=== PATIENT | female | born 1985 | race Caucasian/White ===

== ENCOUNTER 2017-11-20 04:40 | Emergency (ER) | payer BC ==
[~2017-11-20] VITALS: Ht 165.1 cm; Wt 63.5 kg
--- NOTE | 2017-11-20 04:51 | Emergency Room Report ---
History of Present Illness General Source: Patient, EMS Present Illness HPI 32-year-old female brought in by EMS with alleged overdose Per EMS patient had respiratory rate less than 6, was hypoxic, not breathing on her own CPR was in progress when EMS arrived She had pinpoint pupils, responded only after 2nd round of 2mg narcan Patient now more alert, denies heroin, states only ETOH "hanging out with 2 guys." Patient otherwise lethargic, refusing to provide additional HPI at this time Allergies: Coded Allergies: No Known Allergies (Unverified , 11/20/17) Patient History Past Medical History: unable to obtain Past Surgical History: unable to obtain Pertinent Family History: unable to obtain Now: No Immunizations: UTD Reviewed Nursing Documentation: PMH: Agreed, PSxH: Agreed Review of Systems All Other Systems: limited - Patient not cooperative Physical Exam Sp02 EP Interpretation: reviewed, normal General Appearance: normal inspection, well appearing, no apparent distress, alert, GCS 15, non-toxic Head: normocephalic, atraumatic Eyes: bilateral eye PERRL, bilateral eye EOMI ENT: normal ENT inspection, hearing grossly normal, normal pharynx, no angioedema, normal voice, TMs + canals normal, uvula midline, moist mucus membranes Neck: normal inspection, full range of motion, supple, thyroid normal, no meningismus, no bony tend Respiratory: normal inspection, lungs clear, normal breath sounds, no rhonchi, no respiratory distress, no retraction, no accessory muscle use, no wheezing, speaking full sentences Cardiovascular #1: regular rate, rhythm, no edema, no JVD, normal capillary refill Gastrointestinal: normal inspection, normal bowel sounds, non tender, soft, no mass, no peritonitis, non-distended, no guarding, no hernia, no pulsatile mass Genitourinary: no CVA tenderness Musculoskeletal: normal inspection, back normal, normal range of motion, no calf tenderness, pelvis stable, Romulo's Sign negative Neurologic: normal inspection, alert, oriented x3, responsive, corporate quality assurance manager III-XII nml as tested, motor strength/tone normal, cerebellar normal, normal gait, speech normal Psychiatric: normal inspection, judgement/insight normal, mood/affect normal, no suicidal/homicidal ideation, no delusions Skin: normal inspection, normal color, no rash Lymphatic: normal inspection, no adenopathy Procedures Critical Care Time Critical Care Time CC time 35 min Critical care time endorsed for this patient for this alleged overdose on ? heroin. Intent unknown Critical care time includes review of laboratory tests, imaging, review of EMR, review of paperwork from SNF (if available), discussion with patient and family (if available), review of code status/POLS (if available). Critical care time also likely includes assessment of fluid status, stabilization of vital signs, possible Tox consult, additional narcan doses, narcan drip gtt titration Critical care time does not include any procedures which are documented elsewhere in this EMR. Medical Decision Making Diagnostic Impression: Primary Impression: Altered mental status Qualified Codes: R41.82 - Altered mental status, unspecified ER Course ETOH level normal Utox + for benzos, barbituates. Patient's came to the ER, states patient was just discharged from rehabilitation earlier today. Was given barbiturates and benzos there to treat for her addiction. Endorses patient has been in and out of rehabilitation primarily for cocaine abuse He denies that she ever used heroin in the past, also denies to him that she used heroin last night. Urine tox is negative for opiates It's possible that there wasn't a causality relationship between Narcan given by EMS and response by patient Rest of labs unremarkable Patient now awake and oriented, go home with We'll discharge ER course: Patient has remained stable during ED stay. Disposition: Patient is to be discharged to home. Patient is instructed to follow up with their primary care doctor within 5 days. Strict return precautions discussed with patient such as fever, chills, worsening/severe pain, nausea, vomiting, which may indicate severe illness. Patient verbalizes understanding and agrees with plan. Please note that this Emergency Department Report was dictated using [employer] technology software, occasionally this can lead to erroneous entry secondary to interpretation by the dictation equipment Rhythm Strip Diag. Results EP Interpretation: yes Rate: 79 Rhythm: NSR, no PVC's, no ectopy Status: improved Disposition: HOME, SELF-CARE ALISSON FAGAN M.D. Nov 20, 2017 04:51
[2017-11-20 05:45] LABS: EOSINOPHILS % (AUTO) 5.9 % (0.0-3.0); HEMATOCRIT 42.1 % (37.0-47.0); HEMOGLOBIN 13.4 G/DL (12.0-16.0); LYMPHOCYTES % (AUTO) 46.5 % (20.0-45.0); MEAN CORPUSCULAR VOLUME 100 FL (80-99); MONOCYTES % (AUTO) 4.5 % (1.0-10.0); NEUTROPHILS % (AUTO) 41.1 % (45.0-75.0); PLATELET COUNT 321 K/UL (150-450); RED BLOOD COUNT 4.23 M/UL (4.20-5.40); RED CELL DISTRIBUTION WIDTH 12.4 % (11.6-14.8); WHITE BLOOD COUNT 6.3 K/UL (4.8-10.8)
[2017-11-20 05:53] VITALS: BP 99/68
[2017-11-20 05:57] LABS: ANION GAP 7 mmol/L (5-15); BLOOD UREA NITROGEN 9 mg/dL (7-18); CALCIUM 9.1 MG/DL (8.5-10.1); CARBON DIOXIDE 29 MMOL/L (21-32); CHLORIDE 99 MMOL/L (98-107); CREATININE 0.8 MG/DL (0.55-1.30); POTASSIUM 4.6 MMOL/L (3.5-5.1); SODIUM 135 MMOL/L (136-145)
[2017-11-20 06:05] LABS: ALANINE AMINOTRANSFERASE 178 U/L (12-78); ALBUMIN 3.8 G/DL (3.4-5.0); ALBUMIN/GLOBULIN RATIO 0.9 (1.0-2.7); ALKALINE PHOSPHATASE 185 U/L (46-116); ASPARTATE AMINO TRANSFERASE 246 U/L (15-37); BILIRUBIN,TOTAL 0.3 MG/DL (0.2-1.0)
[2017-11-20 07:31] VITALS: BP 106/75
--- NOTE | 2017-11-28 13:52 | Cardiology Report ---
APPROVED REPORT EKG Measurement Heart [id number] Normal sinus rhythm Normal ECG
== END 2017-11-20 07:35 | disposition home or self-care (01) ==
LOC: EDBD 04:40 → EMR 04:54
DX: R41.82 Altered mental status, unspecified (principal); R09.02 Hypoxemia
CPT/HCPCS: 36415; 80053; 80307; 81025; 85025; 93005; 99291; G0480; 80329